=== PATIENT | male | born 1945 | race Caucasian/White ===

== ENCOUNTER 2021-10-23 13:20 | Outpatient (CLI) | payer MEDICARE, BC, SELFPAY ==
[2021-10-23 16:00] LABS: Albumin* 4.4 g/dL (3.3-5.0); Chloride* 105 mmol/L (96-114); Sodium* 139 mmol/L (135-149)
[2021-10-23 16:01] LABS: Potassium* 4.9 mmol/L (3.6-5.1)
[2021-10-23 16:02] LABS: Cholesterol* 222 mg/dL (90-199); Creatinine* 1.2 mg/dL (0.5-1.5); Estimated Glomerular Filt Rate 63 ml/min
[2021-10-23 16:03] LABS: Alanine Aminotransferase* 18 U/L (4-50); Alkaline Phosphatase* 64 U/L (40-150); Aspartate Amino Transferase* 36 U/L (12-35); Bilirubin Total* 0.9 mg/dL (0.1-1.5); Blood Urea Nitrogen* 23 mg/dL (7-30); Carbon Dioxide* 32 mmol/L (20-32); Glucose* 98 mg/dL (60-115); Total Protein* 7.1 g/dL (6.0-8.3); Triglycerides* 81 mg/dL (40-149)
[2021-10-23 16:04] LABS: Calcium* 9.6 mg/dL (8.4-10.6); HDL Cholesterol* 52 mg/dL (>=40); LDL Cholesterol Calculated 154 mg/dL (<100)
[2021-10-23 16:32] LABS: PSA Screen* 5.08 ng/mL (0.10-4.00)
== END 2021-10-23 13:21 | disposition home or self-care (01) ==
PROVIDERS: PCP Family Medicine; Visit Provider Family Medicine
DX: Z00.00 Encounter for general adult medical examination without abnormal findings (principal); E78.5 Hyperlipidemia, unspecified; R53.83 Other fatigue; K21.9 Gastro-esophageal reflux disease without esophagitis; R97.20 Elevated prostate specific antigen [PSA]; Z12.5 Encounter for screening for malignant neoplasm of prostate
CPT/HCPCS: 80053; 80061; 84153

== ENCOUNTER 2021-11-03 09:47 | Outpatient (CLI) | payer MEDICARE, BC, SELFPAY ==
--- NOTE | 2021-11-03 10:15 | CRLHL7_ITS ---
For Patients: As a result of the 21st Century Cures Act, medical imaging exams and procedure reports are released immediately into your electronic medical record. You may view this report before your referring provider. If you have questions, please contact your health care provider. INDICATION: Radiculopathy. TECHNIQUE: Multiplanar multisequence noncontrast MR images acquired through the lumbar spine. COMPARISON: None. FINDINGS: Transitional lumbosacral anatomy. For purposes of this exam, the transitional segment is designated L5 and demonstrates left greater than right sacralization. Iide-kz-pmyuudmm rightward lumbar curvature mildly exaggerated lumbar lordosis. No acute fracture. No concerning T1 hypointense marrow replacing lesions. Conus terminates at T12. T12-L1: Advanced disc degeneration and moderate disc height loss. Circumferential disc bulge. No spinal canal or neural foraminal narrowing. L1-2: Mild retrolisthesis. Posterior disc bulging and endplate spondylitic ridging. Ntwt-uk-hyfosccx left and mild right facet arthropathy. Mild spinal canal narrowing. Moderate left lateral recess narrowing. Moderate left without right neural foraminal narrowing. L2-3: Mild retrolisthesis. Advanced left eccentric disc height loss associated with mild marrow edema. Left eccentric disc bulging and endplate spondylitic ridging. Hfft-uj-mrgkplrt facet arthropathy. Mild to moderate spinal canal narrowing. Moderate left and mild right lateral recess narrowing. Severe left and mild right neural foraminal narrowing. L3-4: Mild retrolisthesis. Advanced disc degeneration. Moderate disc height loss. Circumferential disc bulge. Moderate right and foka-xe-rlmhuztc left facet arthropathy. Mild spinal canal narrowing. Csqv-hm-lcvrxzsz narrowing of the lateral recesses. Mild bilateral neural foraminal narrowing. L4-5: Grade 1 anterolisthesis measuring 6 mm. Advanced disc degeneration and disc height loss associated with gqjy-ry-hqetyphs vertebral body marrow edema. Advanced hnzp-irhdaid-mcjv-right facet arthropathy. Thickening ligamentum flavum. Mild spinal canal narrowing. Gmia-vd-ydcjcfhl right lateral recess narrowing. Severe right and mild left neural foraminal narrowing. L5-S1: Mild disc degeneration. Mild facet arthropathy. No spinal canal or neural foraminal narrowing. Sacroiliac joint degenerative change. IMPRESSION: 1. Transitional lumbosacral anatomy. For purposes of this exam, the transitional segment is designated L5 and demonstrates left greater than right sacralization. 2. Multilevel lumbar spondylosis without spinal canal stenosis. 3. At L1-2, moderate left lateral recess narrowing. 4. At L2-3, moderate left lateral recess narrowing. Severe left neural foraminal stenosis. 5. At L4-5, severe right neural foraminal stenosis. Grade 1 anterolisthesis contributes to qoax-dw-jtxdhksg right lateral recess narrowing. Dictated by Farzad Blood MD @ 11/03/2021 2:00:25 PM (Electronically Signed)
== END 2021-11-03 09:48 | disposition home or self-care (01) ==
PROVIDERS: PCP Family Medicine; Visit Provider Family Medicine
DX: M54.10 Radiculopathy, site unspecified (principal); M51.26 Other intervertebral disc displacement, lumbar region; M48.061 Spinal stenosis, lumbar region without neurogenic claudication
CPT/HCPCS: 72148

== ENCOUNTER 2022-03-05 09:46 | Outpatient (CLI) | payer MEDICARE, BC, SELFPAY ==
[2022-03-05 12:37] LABS: Albumin* 4.7 g/dL (3.3-5.0)
[2022-03-05 12:39] LABS: Bilirubin Direct* 0.1 mg/dL (0.0-0.5); Bilirubin Total* 1.4 mg/dL (0.1-1.5)
[2022-03-05 12:40] LABS: Alanine Aminotransferase* 23 U/L (4-50); Alkaline Phosphatase* 62 U/L (40-150); Aspartate Amino Transferase* 31 U/L (12-35); Total Protein* 7.3 g/dL (6.0-8.3)
== END 2022-03-05 09:47 | disposition home or self-care (01) ==
LOC: LKVREF 09:46
PROVIDERS: PCP Family Medicine; Visit Provider Family Medicine
DX: Z01.818 Encounter for other preprocedural examination (principal); E78.5 Hyperlipidemia, unspecified
CPT/HCPCS: 80076

== ENCOUNTER 2022-06-01 11:12 | Outpatient (CLI) | payer MEDICARE, BC, SELFPAY | END 2022-06-01 11:13 | disposition home or self-care (01) | PROVIDERS: PCP Family Medicine; Visit Provider Family Medicine | DX: E78.5 Hyperlipidemia, unspecified (principal); R53.83 Other fatigue; R97.20 Elevated prostate specific antigen [PSA]; F41.8 Other specified anxiety disorders | CPT/HCPCS: 80053; 80061; 84153; 84154; 84550 ==

== ENCOUNTER 2022-09-28 10:41 | Outpatient (CLI) | payer MEDICARE, BC, SELFPAY | END 2022-09-28 10:42 | disposition home or self-care (01) | PROVIDERS: PCP Family Medicine; Visit Provider Family Medicine | DX: E78.5 Hyperlipidemia, unspecified (principal); R53.83 Other fatigue; R97.20 Elevated prostate specific antigen [PSA]; R10.9 Unspecified abdominal pain; N40.0 Benign prostatic hyperplasia without lower urinary tract symptoms; K21.9 Gastro-esophageal reflux disease without esophagitis; K44.9 Diaphragmatic hernia without obstruction or gangrene | CPT/HCPCS: 80061; 80076; 82150; 84153 ==

== ENCOUNTER 2023-03-07 12:01 | Outpatient (CLI) | payer MEDICARE, BC, SELFPAY | END 2023-03-07 12:02 | disposition home or self-care (01) | PROVIDERS: PCP Family Medicine; Visit Provider Family Medicine | DX: Z00.00 Encounter for general adult medical examination without abnormal findings (principal); R53.83 Other fatigue; E78.5 Hyperlipidemia, unspecified; N40.0 Benign prostatic hyperplasia without lower urinary tract symptoms; M54.9 Dorsalgia, unspecified; R97.20 Elevated prostate specific antigen [PSA]; Z13.29 Encounter for screening for other suspected endocrine disorder; F41.8 Other specified anxiety disorders; Z13.21 Encounter for screening for nutritional disorder | CPT/HCPCS: 80053; 82306; 84443 ==